=== PATIENT | male | born 2000 ===

== ENCOUNTER 2021-07-31 23:53 | Emergency (ER) ==
[~2021-07-31] VITALS: Ht 167.6 cm; Wt 86.7 kg
[2021-08-01] MEDS ORDERED: IBUP-1022 PO (00:02)
[2021-08-01 01:25] LABS: RSV AMPLIFICATION NEGATIVE (NEGATIVE)
== END 2021-08-01 02:02 | disposition left against medical advice (07) ==
LOC: M ED 23:53
DX: Z53.29 Procedure and treatment not carried out because of patient's decision for other reasons (principal)